=== PATIENT | female | born 1975 | race Caucasian/White ===

== ENCOUNTER 2016-10-06 07:44 | Emergency (ER) | payer OTHER ==
[~2016-10-06] VITALS: Wt 79.0 kg
[2016-10-06] MEDS ORDERED: ONDANSETRON 4 MG INJ IV STA (08:14)
[2016-10-06] MEDS ORDERED: morphine 4 MG/ML VIAL IV STA (08:14)
[2016-10-06] MEDS ORDERED: FAMOTIDINE 20 MG TAB PO STA (08:14)
--- NOTE | 2016-10-06 08:51 | RADRPT ---
PROCEDURE: US Abdomen. CLINICAL INDICATION: abdominal pain TECHNIQUE: Multiple real-time images were acquired of the patient's right upper quadrant abdomen a nd retroperitoneum utilizing a high resolution transducer. COMPARISON: None FINDINGS: The liver demonstrates increased echogenicity. The liver is normal in size and no focal solid lesio ns are seen. The liver measures 14.7 cm in length. The portal vein is patent with normal direction o f flow. No intrahepatic biliary dilatation is seen. No gallstones are identified within the gallbladder. There is no pericholecystic fluid or gallbladd er wall thickening. The common bile duct measures 3 mm in maximal dimension. The visualized portions of the pancreas are unremarkable. The tail of the pancreas is not seen. No free fluid is identified. The right kidney is normal in size, and demonstrate normal echogenicity and cortical thickness. The right kidney measures 10.9 cm in long dimension. There is no evidence of hydronephrosis. There are no kidney stones. RPTAT: AA IMPRESSION: Fatty infiltration of the liver. No evidence of gallstones. .Colton Bagley MD, Date Time Electronically viewed and signed by .Colton Bagley MD, on 10/06/2016 08:51 .S/
--- NOTE | 2016-10-06 09:08 | ERD ---
ER Documentation Chief Complaint Date/Time DATE: 10/06/16 TIME: 09:07 Chief Complaint ruq pain w nausea HPI This is a 40-year-old female who presents the emergency department today complaining of nausea and abdominal pain for the past 2 days. Patient states that she drank mineral water to help improve her symptoms. States she has some pain in her back. Denies any fevers or chills or diarrhea. ROS All systems reviewed and are negative except as per history of present illness. Allergies Allergies: Coded Allergies: No Known Allergy (Unverified , 10/06/16) PMhx/Soc Medical and Surgical Hx: pt denies Medical Hx, pt denies Surgical Hx Hx Alcohol Use: No Hx Substance Use: No Hx Tobacco Use: No Smoking Status: Never smoker Physical Exam Vitals Vital Signs Date Time Temp Pulse Resp B/P Pulse Ox O2 Delivery O2 Flow Rate FiO2 10/06/16 11:56 68 20 108/59 99 Room Air 10/06/16 07:49 98.4 86 20 123/83 98 Physical Exam Const: Obese, no acute distress Head: Atraumatic Eyes: Normal Conjunctiva ENT: Normal External Ears, Nose and Mouth. Neck: Full range of motion..~ No meningismus. Resp: Clear to auscultation bilaterally Cardio: Regular rate and rhythm, no murmurs Abd: Soft, right upper quadrant and epigastric tender non distended. Normal bowel sounds. No tenderness at McBurney's. Skin: No petechiae or rashes Back: No midline or flank tenderness Ext: No cyanosis, or edema Neur: Awake and alert Psych: Normal Mood and Affect Result Diagram: 10/06/16 0820 10/06/16 0820 Results 24 hrs Laboratory Tests Test 10/06/16 08:10 10/06/16 08:20 Urine Color YELLOW Urine Clarity CLEAR Urine pH 5.0 Urine Specific [place] 1.015 Urine Ketones NEGATIVEmg/dL Urine Nitrite POSITIVEmg/dL Urine Bilirubin NEGATIVEmg/dL Urine Urobilinogen NEGATIVEmg/dL Urine Leukocyte Esterase TRACELeu/ul Urine Microscopic RBC 1/HPF Urine Microscopic WBC 6/HPF Urine Bacteria FEW/HPF Urine Hemoglobin 2+mg/dL Urine Glucose NEGATIVEmg/dL Urine Total Protein NEGATIVEmg/dl White Blood Count 9.710^3/ul Red Blood Count 4.9310^6/ul Hemoglobin 12.4g/dl Hematocrit 37.5% Mean Corpuscular Volume 76.1fl Mean Corpuscular Hemoglobin 25.2pg Mean Corpuscular Hemoglobin Concent 33.1g/dl Red Cell Distribution Width 14.6% Platelet Count 07170^3/UL Mean Platelet Volume 10.1fl Neutrophils % 60.3% Lymphocytes % 21.5% Monocytes % 10.4% Eosinophils % 6.9% Basophils % 0.7% Nucleated Red Blood Cells % 0.0/100WBC Neutrophils # (Manual) 610^3/ul Lymphocytes # 2.110^3/ul Monocytes # 1.010^3/ul Eosinophils # 0.710^3/ul Basophils # 0.110^3/ul Nucleated Red Blood Cells # 0.010^3/ul Sodium Level 144mmol/L Potassium Level 4.2mmol/L Chloride Level 101mmol/L Carbon Dioxide Level 27mmol/L Anion Gap 20 Blood Urea Nitrogen 13mg/dl Creatinine 0.57mg/dl Glucose Level 95mg/dl Calcium Level 9.4mg/dl Total Bilirubin 0.1mg/dl Direct Bilirubin 0.00mg/dl Indirect Bilirubin 0.1mg/dl Aspartate Amino Transf (AST/SGOT) 58IU/L Alanine Aminotransferase (ALT/SGPT) 89IU/L Alkaline Phosphatase 126IU/L Total Protein 8.0g/dl Albumin 4.1g/dl Globulin 3.90g/dl Albumin/Globulin Ratio 1.05 Lipase 60U/L Current Medications Medications (Trade) Dose Ordered Sig/José Manuel Route PRN Reason Start Time Stop Time Status Last Admin Dose Admin Morphine Sulfate (morphine) 4 mg ONCE STAT IV 10/06/16 08:14 10/06/16 08:16 DC 10/06/16 08:47 Ondansetron HCl (Zofran Inj) 4 mg ONCE STAT IV 10/06/16 08:14 10/06/16 08:16 DC 10/06/16 08:46 Famotidine (Pepcid) 20 mg ONCE STAT PO 10/06/16 08:14 10/06/16 08:16 DC 10/06/16 08:47 DIAGNOSTIC IMAGING REPORT Patient: SHALINI RIVERA : 1975 Age: 40 Sex: F MR #: [id number] DOS: 10/06/1614 Ordering MD: BINTA RAMIRES PA-C Location: [facility] Room/Bed: PROCEDURE: US Abdomen. CLINICAL INDICATION: abdominal pain TECHNIQUE: Multiple real-time images were acquired of the patient's right upper quadrant abdomen and retroperitoneum utilizing a high resolution transducer. COMPARISON: None FINDINGS: The liver demonstrates increased echogenicity. The liver is normal in size and no focal solid lesions are seen. The liver measures 14.7 cm in length. The portal vein is patent with normal direction of flow. No intrahepatic biliary dilatation is seen. No gallstones are identified within the gallbladder. There is no pericholecystic fluid or gallbladder wall thickening. The common bile duct measures 3 mm in maximal dimension. The visualized portions of the pancreas are unremarkable. The tail of the pancreas is not seen. No free fluid is identified. The right kidney is normal in size, and demonstrate normal echogenicity and cortical thickness. The right kidney measures 10.9 cm in long dimension. There is no evidence of hydronephrosis. There are no kidney stones. RPTAT: AA IMPRESSION: Fatty infiltration of the liver. No evidence of gallstones. .Colton Bagley MD, MD Date Time Electronically viewed and signed by .Colton Bagley MD, MD on 10/06/2016 08: 51 .S/ CC: BINTA RAMIRES PA-C Procedures/[facility] This 40-year-old female presents emergency department today complaining of abdominal pain and nausea and some back pain for the past 2 days. Given patient 's location of pain in her right upper quadrant I did obtain laboratory work as well as an ultrasound Laboratory workup shows no elevated white blood cell count. She is not anemic. Platelets are within normal limits. Electrolytes are within normal limits. Glucose is within normal limits. Lipase within normal limits. Liver enzymes are very mildly elevated. UAshows trace leukocyte esterase and positive nitrite Urine test is negative Ultrasound shows fatty infiltration of the liver there is no evidence of gallstones. There is no pelvic cystic fluid or gallbladder wall thickening. Common bile duct measures 3 mm in maximal dimension. Patient's abdominal pain and back pain most consistent with her urinary tract infection. I have low suspicion for acute surgical abdomen as patient has no lower abdominal pain. Low suspicion for acute cholecystitis, acute appendicitis. Patient is afebrile and otherwise well-appearing. She has no CVA tenderness and of low suspicion for pyelonephritis or nephrolithiasis. Patient will be given a prescription for Keflex, short course of Tylenol, Zofran for home. At this time the patient is stable for discharge and outpatient management. Patient should follow up with their PCP in the next 1-2 days. They may return to the emergency department sooner for any persistent or worsening of symptoms. Patient understood and agreed with the plan. Departure Diagnosis: Primary Impression: Abdominal pain Abdominal location: right upper quadrant Qualified Code: R10.11 - Right upper quadrant abdominal pain Additional Impression: UTI (urinary tract infection) Urinary tract infection type: site unspecified Hematuria presence: without hematuria Qualified Code: N39.0 - Urinary tract infection without hematuria, site unspecified Condition: BINTA Vázquez PA-C Oct 06, 2016 09:07
[2016-10-06 09:18] LABS: ADD UMIC YES; UR ASCORBIC ACID NEGATIVE (NEGATIVE); UR BACTERIA FEW /HPF (NONE SEEN); UR BILIRUBIN (Dip) NEGATIVE (NEGATIVE); UR BLOOD (Dip) 2+ mg/dL (NEGATIVE); UR CLARITY CLEAR (CLEAR); UR COLOR YELLOW (YELLOW); UR GLUCOSE (Dip) NEGATIVE (NEGATIVE); UR KETONES (Dip) NEGATIVE (NEGATIVE); UR LEUKOCYTE ESTERASE (Dip) TRACE Leu/ul (NEGATIVE); UR NITRITE (Dip) POSITIVE (NEGATIVE); UR RBC 1 /HPF (0-5); UR SPECIFIC GRAVITY (Dip) 1.015 (1.003-1.030); UR TOTAL PROTEIN (Dip) NEGATIVE (NEGATIVE); UR UROBILINOGEN (Dip) NEGATIVE (NEGATIVE)
[2016-10-06 09:27] LABS: BASOPHIL # 0.1 10^3/ul (0.0-0.1); BASOPHILS % 0.7 % (0.0-2.0); EOSINOPHILS # 0.7 10^3/ul (0.0-0.5); EOSINOPHILS % 6.9 % (0.0-7.0); HEMATOCRIT 37.5 % (37.0-47.0); HEMOGLOBIN 12.4 g/dl (12.0-16.0); LYMPHOCYTES # 2.1 10^3/ul (0.8-2.9); LYMPHOCYTES % 21.5 % (15.0-51.0); MEAN CORPUSCULAR HEMOGLOBIN 25.2 pg (29.0-33.0); MEAN CORPUSCULAR HGB CONC 33.1 g/dl (32.0-37.0); MEAN CORPUSCULAR VOLUME 76.1 fl (82.0-101.0); MEAN PLATELET VOLUME 10.1 fl (7.4-10.4); MONOCYTES % 10.4 % (0.0-11.0); NEUTROPHILS % 60.3 % (39.0-77.0); PLATELET COUNT 448 10^3/UL (140-415); RED BLOOD COUNT 4.93 10^6/ul (4.20-5.40); RED CELL DISTRIBUTION WIDTH 14.6 % (11.5-14.5); WHITE BLOOD COUNT 9.7 10^3/ul (4.8-10.8)
[2016-10-06 09:50] LABS: ALBUMIN 4.1 g/dl (3.3-4.9); ALBUMIN/GLOBULIN RATIO 1.05; BILIRUBIN,INDIRECT 0.1 mg/dl (0-1.1); BILIRUBIN,TOTAL 0.1 mg/dl (0.2-1.3); CALCIUM 9.4 mg/dl (8.4-10.2); CREATININE 0.57 mg/dl (0.44-1.00); POTASSIUM 4.2 mmol/L (3.5-5.1)
[2016-10-06 11:56] VITALS: BP 108/59; PULSE 68; RESP 20
== END 2016-10-06 11:57 | disposition home or self-care (01) ==
LOC: FTE 07:44
DX: R10.11 Right upper quadrant pain (principal); R11.0 Nausea; N39.0 Urinary tract infection, site not specified
CPT/HCPCS: 36415; 76705; 80053; 81001; 83690; 85025; 96374; 96375; J2270; J2405; Z7502; Z7610

== ENCOUNTER 2017-12-06 11:07 | Emergency (ER) | END 2017-12-06 14:34 | disposition home or self-care (01) ==

== ENCOUNTER 2018-07-26 19:28 | Emergency (ER) | payer OTHER ==
[~2018-07-26] VITALS: Ht 152.4 cm; Wt 80.2 kg
[~2018-07-26 19:28] MED LIST: LEVO25TA6 PO; METF500T24 PO; NAPR-985 PO
[2018-07-26 19:30] VITALS: Ht 152.4 cm; Wt 80.2 kg
[2018-07-26] MEDS: KETOROLAC 60 MG INJ IM STA ×2 (20:50→21:02)
--- NOTE | 2018-07-26 22:36 | ERD ---
ER Documentation Chief Complaint Chief Complaint PELVIC PAIN X'S 1 DAY HPI History of Present Illness: 42-year-old female who denies a past medical history coming in today with complaint of pelvic pain that started yesterday. Patient reports a monogamous relationship. Patient denies vaginal discharge or odor. Patient reporting painful urination. Associated symptoms include left flank pain, suprapubic pain At home pharmacological/nonpharmacological treatment for symptoms: Denies Denies social concerns; Denies recent foreign travel ROS All systems reviewed and are negative except as per history of present illness. Medications Home Meds Active Scripts Ibuprofen* (Ibuprofen*) 600 Mg Tablet, 600 MG PO Q6H PRN for PAIN AND/OR INFLAMMATION, #30 TAB Prov:NAM HOPE NP 07/26/18 Fluconazole* (Diflucan*) 150 Mg Tablet, 150 MG PO ONCE, #1 TAB Take this medication when you complete course of metronidazole/Flagyl treatment for prophylactic treatment for vaginal candidiasis. Prov:NAM HOPE NP 07/26/18 Metronidazole* (Flagyl*) 500 Mg Tablet, 500 MG PO BID for VAGINAL INFECTION for 7 Days, TAB Prov:NAM HOPE NP 07/26/18 Naproxen* (Naprosyn*) 500 Mg Tablet, 500 MG PO BID PRN for PAIN AND/OR INFLAMMATION, #12 TAB With food or milk Prov:KIYA ARELLANO MD 03/27/18 Reported Medications Levothyroxine Sodium* (Levothyroxine Sodium*) 25 Mcg Tablet, 25 MCG PO BEFORE BREAKFAST, #30 TAB 03/27/18 Metformin Hcl* (Metformin Hcl*) 500 Mg Tablet, 500 MG PO WITH BREAKFAST, #30 TAB 03/27/18 Allergies Allergies: Coded Allergies: No Known Allergy (Unverified , 03/27/18) PMhx/Soc History of Surgery: Yes (tubal ligation) Anesthesia Reaction: No Hx Neurological Disorder: No Hx Respiratory Disorders: No Hx Cardiac Disorders: No Hx Psychiatric Problems: No Hx Miscellaneous Medical Probl: Yes (dm and hypothyroidism) Hx Alcohol Use: No Hx Substance Use: No Hx Tobacco Use: No Smoking Status: Never smoker FmHx Family History: diabetes; No coronary disease Physical Exam Vitals Vital Signs Date Temp Pulse Resp B/P (MAP) Pulse Ox O2 O2 Flow FiO2 Time Delivery Rate 07/26/18 97.5 67 20 116/72 98 Room Air 23:50 (87) 07/26/18 97.2 83 18 137/67 100 19:30 (90) Physical Exam Const: No acute distress Head: Atraumatic Eyes: Normal Conjunctiva ENT: Normal External Ears, Nose and Mouth. Neck: Full range of motion. No meningismus. Resp: Clear to auscultation bilaterally Cardio: Regular rate and rhythm, no murmurs Abd: Soft, suprapubic tenderness, non distended. Normal bowel sounds. Obese. Skin: No petechiae or rashes Back: No midline or flank tenderness Ext: No cyanosis, or edema Neur: Awake and alert Psych: Normal Mood and Affect Results 24 hrs Laboratory Tests Test 07/26/18 20:58 07/26/18 21:07 POC Beta HCG, Qualitative NEGATIVE Urine Color STRAW Urine Clarity CLEAR Urine pH 6.0 Urine Specific [place] 1.005 Urine Ketones NEGATIVE mg/dL Urine Nitrite NEGATIVE mg/dL Urine Bilirubin NEGATIVE mg/dL Urine Urobilinogen NEGATIVE mg/dL Urine Leukocyte Esterase NEGATIVE [place]/ul Urine Microscopic RBC 0 /HPF Urine Microscopic WBC 0 /HPF Urine Squamous Epithelial Cells FEW /HPF Urine Hemoglobin 1+ mg/dL Urine Glucose NEGATIVE mg/dL Urine Total Protein NEGATIVE mg/dl Current Medications Medications Dose Sig/José Manuel Start Time Status Last (Trade) Ordered Route PRN Stop Time Admin Dose Reason Admin Ketorolac 60 mg ONCE STAT 07/26/18 DC 07/26/18 Tromethamine IM 20:40 21:02 (Toradol) 07/26/18 20:41 500 mg ONCE ONCE 07/27/18 DC 07/26/18 Metronidazole PO 00:00 23:48 (Flagyl) 07/27/18 00:00 Procedures/MDM ED course includes a thorough examination and history. Medications: Ketorolac Imaging: Labs: Urinalysis, gonorrhea chlamydia ED course: Urinalysis negative for infection or hematuria. Low suspicion for kidney stones or urinary tract infection at this time. We will proceed forward with orders for pelvic ultrasound as well as urogenital wet mount. Low suspicion for life-threatening medical emergency. Low suspicion for acute abdominal emergency. Low suspicion for genitourinary emergency requires hospitalization or immediate surgical intervention. Otherwise healthy patient presenting with constellation of symptoms likely representing bacterial vaginosis and possible pelvic inflammatory disease as characterized by history, physical exam findings. Vaginal exam deferred, patient refused, unable to confirm if CMT is present. Urogenital wet mount positive for clue cells. Ultrasound impression showing: IMPRESSION: 1. Sonographically unremarkable uterus and ovaries. RPTAT:AAJJ Physician Padmini Date Time Electronically viewed and signed by Physician Padmini on 07/26/2018 23:03 Patient reassessment 2330: Patient hemodynamically stable. Patient reporting decrease in pain. No respiratory distress, otherwise relatively well appearing and nontoxic. Disposition given. Patient educated on diagnoses, prescriptions, follow-up care, return precautions. Strict return precautions given for worsening condition; questions answered discharge. Disposition for discharge with followup in 2 days with PCP/clinic. NAM HOPE NP Jul 26, 2018 22:36
[2018-07-26] MEDS ORDERED: IBUP-1542 PO (23:32)
[2018-07-26] MEDS ORDERED: FLUC150T PO (23:32)
[2018-07-26] MEDS ORDERED: METR500T PO (23:32)
[2018-07-26 23:50] VITALS: BP 116/72; PULSE 67; RESP 20
[2018-07-27] MEDS ORDERED: metroNIDAZOLE 500 MG TAB PO ONE
== END 2018-07-26 23:52 | disposition home or self-care (01) ==
LOC: FTE 19:28
DX: R10.2 Pelvic and perineal pain (principal); E11.9 Type 2 diabetes mellitus without complications; E03.9 Hypothyroidism, unspecified; Z79.84 Long term (current) use of oral hypoglycemic drugs
CPT/HCPCS: 76830; 76856; 81001; 81025; 87210; 87591; 96372; J1885; Z7502